=== PATIENT | female | born 1945 | race African-American/Black ===

== ENCOUNTER 2019-08-30 17:27 | Emergency (ER) | payer OTHER ==
[2019-08-30] MEDS ORDERED: KETOROLAC 30 MG/ML INJ ONE (18:43)
[2019-08-30 18:55] LABS: Hematocrit 38.4 % (36.0-45.0); MPV 9.3 fL (7.6-11.3); RBC Red Blood Cell Count 4.54 M/uL (3.86-4.86)
[2019-08-30 19:07] LABS: Albumin 3.8 g/dL (3.4-5.0); Bilirubin Total 0.8 mg/dL (0.2-1.0); Potassium 3.2 mmol/L (3.5-5.1); Protein, Total 7.8 g/dL (6.4-8.2)
--- NOTE | 2019-08-30 20:15 | RAD REPORT ---
EXAM DESCRIPTION: US - Extremity Venous Uni Ltd - 08/30/2019 8:01 pm CLINICAL HISTORY: PAIN Leg swelling and edema. COMPARISON: No comparisons FINDINGS: Right lower extremity venous system was interrogated with Doppler technique. Normal flow, compressibility and augmentation was noted. There is no DVT present. IMPRESSION: No evidence of right lower extremity deep venous thrombosis.
--- NOTE | 2019-08-30 20:59 | ER ---
Nurse's Notes [facility] Name: Aury Mojica Age: 74 yrs Sex: Female : 1945 Arrival Date: 08/30/2019 Time: 17:29 Bed 15 Private MD: Diagnosis: peripheral edema Presentation: 08/30 17:48 Presenting complaint: Patient states: right lower leg pain that began 4 days ago. Pt aa5 reports kandis lower leg swelling. Transition of care: patient was not received from another setting of care. Onset of symptoms was July 2019. Risk Assessment: Do you want to hurt yourself or someone else? Patient reports no desire to harm self or others. Initial Sepsis Screen: Does the patient meet any 2 criteria? No. Patient's initial sepsis screen is negative. Does the patient have a suspected source of infection? No. Patient's initial sepsis screen is negative. Care prior to arrival: None. 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 - Social history:: Smoking status: Patient/guardian denies using tobacco. - Ebola Screening: : No symptoms or risks identified at this time. Screenin:57 Abuse screen: Denies threats or abuse. Nutritional screening: No deficits noted. tw2 Tuberculosis screening: No symptoms or risk factors identified. Fall Risk Secondary diagnosis (15 points) impaired mobility. Assessment: 18:00 General: Appears in no apparent distress. well groomed, Behavior is calm, cooperative, tw2 appropriate for age. Pain: Complains of pain in right leg and left leg. Neuro: Level of Consciousness is awake, alert, obeys commands, Oriented to person, place, time, situation. Cardiovascular: Heart tones S1 S2 Patient's skin is warm and dry. Respiratory: Airway is patent Respiratory effort is even, unlabored, Respiratory pattern is regular, symmetrical, Breath sounds are clear bilaterally. GI: No signs and/or symptoms were reported involving the gastrointestinal system. Abdomen is flat, Bowel sounds present X 4 quads. : No signs and/or symptoms were reported regarding the genitourinary system. EENT: No signs and/or symptoms were reported regarding the EENT system. Derm: 3 small fluid filled blisters noted to back of RIGHT knee pt states "i have had that heating pad on there and it might have been too hot, but i did drive back from [place] the other day, but i know after standing my legs hurt". Musculoskeletal: Reports pain in right leg and left leg. 18:05 Reassessment: Dr. Gordon at bedside at this time. tw2 19:07 Reassessment: Patient appears in no apparent distress at this time. No changes from tw2 previously documented assessment. Patient and/or family updated on plan of care and expected duration. Pain level reassessed. Patient is alert, oriented x 3, equal unlabored respirations, skin warm/dry/pink. 19:10 Reassessment: Patient appears in no apparent distress at this time. Patient and/or jb4 family updated on plan of care and expected duration. Pain level reassessed. Patient is alert, oriented x 3, equal unlabored respirations, skin warm/dry/pink. 20:14 Reassessment: Patient appears in no apparent distress at this time. Patient and/or jb4 family updated on plan of care and expected duration. Pain level reassessed. Patient is alert, oriented x 3, equal unlabored respirations, skin warm/dry/pink. 21:15 Reassessment: Patient appears in no apparent distress at this time. Patient and/or jb4 family updated on plan of care and expected duration. Pain level reassessed. Patient is alert, oriented x 3, equal unlabored respirations, skin warm/dry/pink. Pt verbalized understanding of d/c and follow up instructions. Vital Signs: 17:53 BP 142 / 85; Pulse 99; Resp 18 S; Temp 97.8(TE); Pulse Ox 98% on R/A; Weight 87.09 kg aa5 (R); Height 5 ft. 8 in. (172.72 cm) (R); Pain 9/10; 19:07 BP 139 / 88; Pulse 73; Resp 17; Pulse Ox 96% on R/A; tw2 20:00 BP 129 / 62; Pulse 72; Resp 18; Pulse Ox 97% on R/A; jb4 21:00 BP 142 / 85; Pulse 74; Resp 16; Pulse Ox 98% on R/A; jb4 17:53 Body Mass Index 29.19 (87.09 kg, 172.72 cm) aa5 ED Course: 17:29 Patient arrived in ED. rg4 17:47 Arm band placed on. aa5 17:50 Triage completed. aa5 17:57 Abbie Monahan, RN is Primary Nurse. tw2 17:57 Bed in low position. Call light in reach. tw2 18:01 Oumar Gordon MD is Attending Physician. tw4 18:40 Inserted saline lock: 22 gauge in right antecubital area, using aseptic technique. tw2 Blood collected. 19:05 Report given to COURTNEY Tello. tw2 19:14 Primary Nurse role handed off by Abbie Monahan RN tw2 19:15 Pillow given. jb4 19:28 Luis Manuel Srinivasan, RN is Primary Nurse. jb4 20:02 Extremity Venous Uni Ltd US In Process Unspecified. EDMS 21:15 No provider procedures requiring assistance completed. IV discontinued, intact, jb4 bleeding controlled, No redness/swelling at site. Pressure dressing applied. Administered Medications: 18:44 Drug: TORadol 15 mg Route: IVP; Site: right antecubital; tw2 19:15 Follow up: Response: No adverse reaction; Pain is decreased jb4 21:15 Drug: Potassium Effervescent Tablet 50 mEq Route: PO; jb4 21:22 Follow up: Response: Medication administered at discharge. jb4 Outcome: 20:59 Discharge ordered by . tw4 21:15 Discharged to home ambulatory. jb4 21:15 Condition: stable 21:15 Discharge instructions given to patient, Instructed on discharge instructions, follow up and referral plans. Demonstrated understanding of instructions, follow-up care. 21:25 Patient left the ED. jb4 Signatures: Dispatcher [employer] EDMS Maribel Collins RN RN aa5 Abbie Monahan RN RN tw2 Camilla Buck rg4 Luis Manuel Srinivasan, COURTNEY RN jb4 Oumar Gordon MD MD tw4
--- NOTE | 2019-08-30 20:59 | EDPHYS ---
Physician Documentation [facility] Name: Aury Mojica Age: 74 yrs Sex: Female : 1945 Arrival Date: 08/30/2019 Time: 17:29 Bed 15 Private MD: ED Physician Oumar Gordon HPI: 08/30 20:59 This 74 yrs old Black Female presents to ER via Ambulatory with complaints of Leg tw4 Swelling, Leg Pain. 20:59 The patient presents with swelling. The complaints affect the right knee and right tw4 zuleta. Context: The problem was sustained at home. Onset: The symptoms/episode began/occurred 4 day(s) ago. Modifying factors: The symptoms are alleviated by nothing. the symptoms are aggravated by nothing. Associated signs and symptoms: The patient has no apparent associated signs or symptoms. Severity of symptoms: At their worst the symptoms were mild, in the emergency department the symptoms are unchanged. 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 - Social history:: Smoking status: Patient/guardian denies using tobacco. - Ebola Screening: : No symptoms or risks identified at this time. ROS: 20:59 Constitutional: Negative for fever, chills, and weight loss, Eyes: Negative for injury, tw4 pain, redness, and discharge. 20:59 Cardiovascular: Negative for chest pain, palpitations, and edema, Respiratory: Negative for shortness of breath, cough, wheezing, and pleuritic chest pain, Abdomen/GI: Negative for abdominal pain, nausea, vomiting, diarrhea, and constipation, Back: Negative for injury and pain, Skin: Negative for injury, rash, and discoloration, Neuro: Negative for headache, weakness, numbness, tingling, and seizure. 20:59 MS/extremity: Positive for swelling, tenderness. Exam: 20:59 Constitutional: This is a well developed, well nourished patient who is awake, alert, tw4 and in no acute distress. Head/Face: Normocephalic, atraumatic. 20:59 Chest/axilla: Normal chest wall appearance and motion. Nontender with no deformity. No lesions are appreciated. Cardiovascular: Regular rate and rhythm with a normal S1 and S2. No gallops, murmurs, or rubs. Normal PMI, no JVD. No pulse deficits. Respiratory: Lungs have equal breath sounds bilaterally, clear to auscultation and percussion. No rales, rhonchi or wheezes noted. No increased work of breathing, no retractions or nasal flaring. Abdomen/GI: Soft, non-tender, with normal bowel sounds. No distension or tympany. No guarding or rebound. No evidence of tenderness throughout. Back: No spinal tenderness. No costovertebral tenderness. Full range of motion. Neuro: Awake and alert, GCS 15, oriented to person, place, time, and situation. Cranial nerves II-XII grossly intact. Motor strength 5/5 in all extremities. Sensory grossly intact. Cerebellar exam normal. Normal gait. Psych: Awake, alert, with orientation to person, place and time. Behavior, mood, and affect are within normal limits. 20:59 Musculoskeletal/extremity: Extremities: noted in the right quadriceps, right knee, right zuleta, anterior aspect of right ankle and dorsum of right foot: swelling. Vital Signs: 17:53 BP 142 / 85; Pulse 99; Resp 18 S; Temp 97.8(TE); Pulse Ox 98% on R/A; Weight 87.09 kg aa5 (R); Height 5 ft. 8 in. (172.72 cm) (R); Pain 9/10; 19:07 BP 139 / 88; Pulse 73; Resp 17; Pulse Ox 96% on R/A; tw2 20:00 BP 129 / 62; Pulse 72; Resp 18; Pulse Ox 97% on R/A; jb4 21:00 BP 142 / 85; Pulse 74; Resp 16; Pulse Ox 98% on R/A; jb4 17:53 Body Mass Index 29.19 (87.09 kg, 172.72 cm) aa5 MDM: 18:01 Patient medically screened. tw4 20:59 Differential diagnosis: contusion, DVT. Data reviewed: vital signs, nurses notes. Data tw4 interpreted: Pulse oximetry: Interpretation: normal. Counseling: I had a detailed discussion with the patient and/or guardian regarding: the historical points, exam findings, and any diagnostic results supporting the discharge/admit diagnosis. 08/30 18:32 Order name: CBC w/o diff; Complete Time: 20:52 tw4 08/30 20:54 Interpretation: Within normal limits. tw4 08/30 18:32 Order name: CMP; Complete Time: 19:40 tw4 08/30 19:40 Interpretation: K 3.2; CL 110; GFR 53. tw4 08/30 18:04 Order name: Extremity Venous Uni Ltd US; Complete Time: 20:52 tw4 08/30 20:54 Interpretation: No acute disease. tw4 08/30 18:40 Order name: IV Start; Complete Time: 18:40 tw2 Administered Medications: 18:44 Drug: TORadol 15 mg Route: IVP; Site: right antecubital; tw2 19:15 Follow up: Response: No adverse reaction; Pain is decreased jb4 21:15 Drug: Potassium Effervescent Tablet 50 mEq Route: PO; jb4 21:22 Follow up: Response: Medication administered at discharge. jb4 Disposition: 08/30/19 20:59 Discharged to Home. Impression: peripheral edema. - Condition is Stable. - Medication Reconciliation Form, Thank You Letter, Antibiotic Education, Prescription Opioid Use form. - Follow up: Private Physician; When: Upon discharge from the Emergency Department; Reason: Recheck today's complaints, Continuance of care. - Problem is new. - Symptoms have improved. Signatures: Dispatcher [employer] EDMS Maribel Collins RN RN aa5 Abbie Monahan RN RN tw2 Luis Manuel Srinivasan RN RN jb4 Oumar Gordon MD MD tw4 Corrections: (The following items were deleted from the chart) 21:25 20:59 08/30/2019 20:59 Discharged to Home. Impression: peripheral edema. Condition is jb4 Stable. Forms are Medication Reconciliation Form, Thank You Letter, Antibiotic Education, Prescription Opioid Use. Follow up: Private Physician; When: Upon discharge from the Emergency Department; Reason: Recheck today's complaints, Continuance of care. Problem is new. Symptoms have improved. tw4
[2019-08-30] MEDS ORDERED: POTASSIUM 25 MEQ EFFERV TAB ONE ×2 (21:03→21:09)
[2019-08-31 02:05] VITALS: TEMP 97.8
[2019-08-31 02:09] VITALS: BP 142/85; O2SAT 98
== END 2019-08-30 21:25 | disposition home or self-care (01) ==
LOC: ER 17:27
DX: R60.9 Edema, unspecified (principal); I10 Essential (primary) hypertension; E07.9 Disorder of thyroid, unspecified; Z88.5 Allergy status to narcotic agent; Z88.8 Allergy status to other drugs, medicaments and biological substances
CPT/HCPCS: 36415; 80053; 85027; 93971; 96374; 99284